=== PATIENT | male | born 1945 | race Caucasian/White ===

== ENCOUNTER → 2017-01-07 | Outpatient (CLI) | payer MEDICARE ==
[~2017-01-07] MED LIST: ASPIRIN81 M2 PO; ATORVASTATIN CA10 MG PO; HYDROCHLOROTHIA25 MG PO; LOTENSIN40 MG PO; MULTI-VITAMIN1 EAC1 PO; NITROGLYGERIN0.4 MG SL
--- NOTE | ~2017-01-07 | US85 ---
[facility] A Service of [facility] RADIOLOGY TEXT RESULTS PATIENT: CONRAD AUGUST JR LOCATION: CNIV : 43 UNIT #: [id number] AGE: [address]: Kedar Villaseñor MD SEX: M ORDER DR: [id number] [facility] [address] [place], [place] [address] [id number] O MR#: [id number] Acc #: [id number] NAME: CONRAD AUGUST : 1945 SEX: M STUDY DATE/TIME: 01/07/2017 15:18 UNIT: CNIV ROOM: STUDY DESCRIPTION: [facility] Attending Physician: Kedar Villaseñor M.D. Referring Physician: Kedar Villaseñor M.D. Ordering Physician: Kedar Villaseñor M.D. Primary Care Physician: Jose Mcnair M.D. MEDICAL IMAGING REPORT This report is preliminary unless electronic signature is present EXAM Unilateral left lower extremity venous Doppler, 01/07/2017. HISTORY Left leg pain for several weeks. PROCEDURE Vázquez-scale imaging, color Doppler flow imaging and Doppler waveform analysis. FINDINGS There is a left popliteal fossa, Balbuena cyst about 1 x 1.5 x 2.5 cm in size. The exam is, otherwise, normal. There is normal color flow, and compressibility and where appropriate respiratory phasicity and/or augmentation throughout the entire left lower extremity deep venous system. IMPRESSION Incidental Balbuena's cyst, otherwise, normal/negative unilateral left lower extremity venous Doppler. No evidence of DVT. Dictated by... Cesario Carr M.D. THIS IS AN ELECTRONICALLY VERIFIED REPORT Cesario Carr M.D. at 01/12/2017 12:16 PM TEV/jmai [facility] A Service [facility] RADIOLOGY TEXT RESULTS PATIENT: CONRAD AUGUST JR LOCATION: CNIV : 43 UNIT #: [id number] AGE: [address]: Kedar Villaseñor MD SEX: M ORDER DR: TD: 01/07/2017 17:44 JOB #: [id number] MEDICAL IMAGING REPORT Page 1 of 1 COPY
== END | disposition home or self-care (01) ==
LOC: CNIV 15:00
DX: M79.662 Pain in left lower leg (principal); M79.89 Other specified soft tissue disorders
CPT/HCPCS: 93971

== ENCOUNTER 2017-04-20 10:30 | Observation (INO) | payer MEDICARE ==
[~2017-04-20] VITALS: Ht 172.7 cm; Wt 82.8 kg
--- NOTE | ~2017-04-20 | EKG ---
PATIENT: CONRAD AUGUST UNIT #: [id number] Ventricular Rate: 61 BPM Atrial Rate: 61 BPM P-R Interval: 214 ms QRS Duration: 100 ms Q-T Interval: 404 ms QTC Calculation(Bezet): 406 ms P Josephine: 37 degrees Calculated R Josephine: -25 degrees Calculated T Josephine: 45 degrees Diagnosis Line: Sinus rhythm with 1st degree A-V block Diagnosis Line: Possible Left atrial enlargement Diagnosis Line: Left ventricular hypertrophy Diagnosis Line: Abnormal ECG Diagnosis Line: Diagnosis Line: Confirmed by MELANIA GUILLORY MD ([id number]) on Diagnosis Line: 04/23/2017 10:46:44 AM INTERPRETING MD: PASTORA ESCOBAR
--- NOTE | ~2017-04-20 | HP ---
Unit #: [id number] #: [id number] Patient: CONRAD AUGUST JR [id number] [address] [place], [place] [address] [id number] I MR#: [id number] NAME: OCNRAD AUGUST JR ROOM: 89758 Age: 72 Sex: M Admission Date: 04/20/2017 : 1945 Attending Physician: Rob Flores M.D. Primary Care Physician: Jose Mcnair M.D. HISTORY AND PHYSICAL REASON FOR ADMISSION Chest pain. HISTORY OF PRESENT ILLNESS The patient is a 72-year-old male who has seen Dr. Marte in the past. He had a cardiac cath in 2008 that was essentially unremarkable. It was noted in the impression that there was some question of systolic kink in the distal LAD and he was to have an outpatient Cardiolite stress test which patient did not have. Patient did have a treadmill stress test in 2012 that was unremarkable. PAST MEDICAL HISTORY He has a history of hypertension, hyperlipidemia. He has a history of tobacco use over 40 years ago, history of factor V, he does not take Coumadin, states he has tested positive and had a DVT postoperatively in the past after a hip arthroplasty. SOCIAL HISTORY Patient is an ex-smoker of over 40 years. No alcohol or drug abuse. FAMILY HISTORY Significant for factor V but no significant history of coronary artery disease. He did have a relative that was his aunt that suddenly in her sleep from what they suspect was a stroke. DIAGNOSTICS CARDIOVASCULAR: EKG showed sinus rhythm, LVH. LABORATORY: White blood cell count 6.7, hemoglobin 14.9, hematocrit 47.2, platelet count 148, sodium 141, potassium 3.8, chloride 101, CO2 32, BUN 13, creatinine 1.2, troponin negative x2. REVIEW OF SYSTEMS Complains of left-sided intermittent dull pain. No fever, chills, cough, nausea, vomiting, diarrhea, dizziness, lightheadedness, headache, change in visual field. All other review of systems is negative. PHYSICAL EXAMINATION GENERAL: Patient is awake and alert, in no apparent distress. Color is pink. Skin is warm and dry. VITAL SIGNS: Afebrile, heart rate 63, blood pressure 137/79. HEENT: Normal carotid upstrokes. No auscultated bruit. Negative JVD lying supine. Negative hepatojugular reflux. CHEST: Respirations are regular, unlabored at rest. Bilateral breath Unit #: [id number] #: [id number] Patient: MARIANGEL SANTOS,CONRAD sounds have good air entry through all lung enriquez. No crackles, rubs or wheezes are heard. HEART: S1, S2. Regular rate and rhythm. No murmurs, rubs or gallops. ABDOMEN: Abdomen is soft, nontender and nondistended. Positive bowel sounds all four quadrants. No ascites noted. EXTREMITIES: Bilateral lower extremities have no pretibial pitting edema. DP/PT pulses are 2+. Cap refill less than three seconds. NEURO: No focal motor or sensory deficits. IMPRESSION 1. Musculoskeletal pain. 2. History of factor V Leiden deficiency. 3. Hypertension. 4. Hyperlipidemia. 5. History of cardiac catheterization in 2008. PLAN Will rule out for AK, check 2D echo with Doppler to assess LV function. If cardiac enzymes are negative will plan on Lexiscan stress test tomorrow a.m. Further recommendations pending hospital course. Dictated by Elysia Pagan APRN for Artur Zavaleta/ursula TD: 04/20/2017 19:20 JOB #: [id number] HISTORY AND PHYSICAL Page 1 of 1 X X HISTORY AND PHYSICAL
--- NOTE | ~2017-04-20 | TH ---
Unit #: [id number] #: [id number] Patient: CONRAD AUGUST JR [id number] [address] [address] [id number] I MR#: [id number] NAME: CONRAD AUGUST JR : 1945 SEX: M STUDY DATE/TIME: 04/21/2017 UNIT: [facility] ROOM: 579 STUDY DESCRIPTION: Attending Physician: Rbo Flores M.D. Primary Care Physician: Jose Mcnair M.D. CARDIOLOGY REPORT EXAM Lexiscan Cardiolite stress test, nuclear portion. PROCEDURE Using technetium 99m labeled Cardiolite, rest and stress SPECT images were obtained. Multiple SPECT images were obtained in various views including horizontal and vertical long axis and short axis views of the left ventricle. Images were obtained by gated SPECT method. The patient was administered 11.17 mCi of Cardiolite at rest. The patient was administered 33.3 mCi of Cardiolite after Lexiscan infusion was completed. On the stress images, there is normal perfusion noted. The rest images showed normal perfusion. Comparing rest and stress images, there is no stress-induced ischemia noted. The left ventricular ejection fraction is calculated to be 53%. There is no focal wall motion abnormality seen. CONCLUSION 1. No stress-induced ischemia noted. 2. The left ventricular ejection fraction is calculated to be 53%. 3. There is no focal wall motion abnormality seen. 4. Normal Lexiscan Cardiolite stress test. Dictated by... Artur Chinchilla TD: 04/21/2017 14:43 JOB #: [id number] CARDIOLOGY REPORT Page 1 of 1 X Nemo Zamarripa MD <ELECTRONICALLY SIGNED> 05/06/17 1524 CARDIOLOGY REPORT
--- NOTE | ~2017-04-20 | HP ---
Unit #: [id number] #: [id number] Patient: CONRAD AUGUST JR [id number] [address] [place], [place] [address] [id number] I MR#: [id number] NAME: CONRAD AUGUST JR ROOM: 579 Age: 72 Sex: M Admission Date: 04/20/2017 : 1945 Attending Physician: Rob Flores M.D. Primary Care Physician: Jose Mcnair M.D. HISTORY AND PHYSICAL ADDENDUM Patient was originally admitted for chest pain. He underwent walking Lexiscan Cardiolite which was negative for any stress-induced ischemia. A 2D echocardiogram showed a normal ejection fraction. The patient was deemed stable for discharge home today after he was evaluated and seen by Dr. Flores. There were no changes to his medication regimen during the hospitalization. The patient will be sent out with sublingual nitroglycerin 0.4 mg p.r.n. chest pain with instructions on use. During his hospitalization, there were no arrhythmias. Cardiac rhythm remained stable. Blood pressure was stable and cardiac enzymes remained negative throughout his hospital stay. A long discussion was had with the patient and the family. He was advised if he continued to have persistent chest pain left heart cardiac catheterization would be performed with a FFR measurement. The patient was advised to follow up with his primary care physician in one week and he will follow up with Dr. Flores as he would prefer to change cardiologists from Dr. Marte to Dr. Flores. His appointment is scheduled for June 04 at 2:30 p.m. Discharge condition is stable. Dictated by Chung uBtt/oralia TD: 04/22/2017 09:30 JOB #: [id number] HISTORY AND PHYSICAL Page 1 of 1 X Alexandria Nguyen APRN X HISTORY AND PHYSICAL
--- NOTE | ~2017-04-20 | CR72 ---
[facility] A Service of [facility] RADIOLOGY TEXT RESULTS PATIENT: CONRAD AUGUST JR LOCATION: CEDOF [id number] : 43 UNIT #: [id number] AGE: [address]: Rob Flores MD SEX: M ORDER DR: [id number] [facility] [address] [place], [place] [address] [id number] I MR#: [id number] Acc #: [id number] NAME: CONRAD AUGUST JR : 1945 SEX: M STUDY DATE/TIME: 04/20/2017 11:16 UNIT: CEDOF ROOM: 78059 STUDY DESCRIPTION: CR Chest Single View Portable Attending Physician: Rob Flores M.D. Ordering Physician: Clarisse Cervantes M.D. Primary Care Physician: Jose Mcnair M.D. MEDICAL IMAGING REPORT This report is preliminary unless electronic signature is present EXAM Chest portable 04/20/2017 1116 hours HISTORY 72-year-old man with chest pain and shortness of air for 2.5 weeks. History of hypertension and prostate cancer. COMPARISON None. FINDINGS Single portable upright chest demonstrates heart size at the upper limits of normal. The aorta is mildly tortuous. There is mild pulmonary venous distension without edema, pneumonia or effusion. IMPRESSION Heart size at the upper limits of normal. The lungs are clear and there are no effusions. Dictated by... Marissa Cooley M.D. THIS IS AN ELECTRONICALLY VERIFIED REPORT Marissa Cooley M.D. at 04/20/2017 7:04 PM IAN/phoebe TD: 04/20/2017 16:07 JOB #: [id number] MEDICAL IMAGING REPORT Page 1 of 1 COPY
--- NOTE | ~2017-04-20 | ST ---
Unit #: [id number] #: [id number] Patient: CONRAD AUGUST JR [id number] [facility]. [address] [address] [id number] I MR#: [id number] NAME: CONRAD AUGUST JR : 1945 SEX: M STUDY DATE/TIME: 04/20/2017 UNIT: [facility] ROOM: 579 STUDY DESCRIPTION: Attending Physician: Rob Flores M.D. Primary Care Physician: Jose Mcnair M.D. CARDIOLOGY REPORT EXAM Walking Lexiscan Cardiolite. REASON FOR EXAM Chest pain. FINDINGS Baseline EKG: Normal sinus rhythm, rate of 70 beats per minute, nonspecific T-wave abnormality is noted. PROCEDURE 0.4 mg of Lexiscan was injected per protocol followed by Cardiolite. Next, during the infusion the patient complained of mild shortness of breath but denied any complaints of chest pain or dizziness. His shortness of breath resolved in the recovery period. Next, there were no ST or T wave changes noted suggestive of ischemia. Next, there was no ectopy. Next, the test was stopped secondary to protocol completion. IMPRESSION 1. Negative EKG portion of walking Lexiscan Cardiolite. 2. No ST-T wave changes suggestive of ischemia. 3. Patient complained of mild shortness of breath during the infusion but denied any complaints of chest pain. His shortness of air resolved in the recovery period. 4. There were no arrhythmias. 5. Please correlate with nuclear images. Dictated by... Gerri ButtPConnieRConnieNConnie for Artur Chinchilla/oralia TD: 04/21/2017 12:52 JOB #: [id number] Unit #: [id number] #: [id number] Patient: CONRAD AUGUST JR CARDIOLOGY REPORT Page 1 of 1 X Alexandria Nguyen APRN CARDIOLOGY REPORT
[~2017-04-20 10:30] MED LIST changes: -ATORVASTATIN CA10 MG PO; -NITROGLYGERIN0.4 MG SL
[2017-04-20 11:32] LABS: BASOPHIL% 0.5 % (0-2.5); EOSINOPHIL# 0.1 X10e3 (0-0.7); HEMATOCRIT 47.2 % (38.0-50.0); HEMOGLOBIN 15.9 gm/dL (13.0-16.0); LYMPHOCYTE# 0.9 X10e3 (1.0-3.5); LYMPHOCYTE% 13.9 % (17.0-45.0); MEAN CELL VOLUME 89.8 FL (83-96); MEAN CORPUSCULAR HEMOGLOBIN 30.1 PG (28-34); MEAN CORPUSCULAR HGB CONC 33.6 g/dL (30-36); MEAN PLATELET VOLUME 9.7 FL (6.5-11.5); MONOCYTE# 0.6 X10e3 (0-1.0); MONOCYTE% 8.2 % (3.0-12.0); NEUTROPHIL# 5.1 X10e3 (1.5-7.1); NEUTROPHIL% 76.4 % (40-75); PLATELET COUNT 148 X10e3 (140-420); RED BLOOD COUNT 5.26 X10e (3.90-5.60); RED CELL DISTRIBUTION WIDTH 13.5 % (11.0-15.5); WHITE BLOOD COUNT 6.7 X10e3 (4.0-10.5)
[2017-04-20 11:33] LABS: DIFF IND NO
[2017-04-20 11:33] LABS: POC - CKMB 3.8 ng/mL (0.0-7.9); POC - TROPONIN <0.05 ng/mL (<=0.05)
[2017-04-20 12:11] LABS: PARTIAL THROMBOPLASTIN TIME 24.5 SECONDS (23.5-31.3); PROTHROMBIN TIME (PATIENT) 10.7 SECONDS (10.0-11.7)
[2017-04-20 12:17] LABS: ALBUMIN SERUM 4.4 g/dL (3.5-5.0); BILIRUBIN, DIRECT 0.1 mg/dL (0.0-0.2); BILIRUBIN,INDIRECT 0.6 mg/dL (0.0-0.9); BILIRUBIN,TOTAL 0.7 mg/dL (0.2-2.0); BUN/CREATININE RATIO 10.83; CALCIUM SERUM 9.6 mg/dL (8.4-10.2); CREATININE SERUM 1.2 mg/dL (0.6-1.4); GLOM FILT RATE Estimated 59.2 mL/min (>60); POTASSIUM 3.8 mmol/L (3.5-5.1); PROTEIN TOTAL SERUM 7.4 g/dL (6.0-8.3)
[2017-04-20 13:02] LABS: POC - TROPONIN <0.05 ng/mL (<=0.05)
[2017-04-20] MEDS ORDERED: ATORVASTATIN CA10 MG PO (14:25)
[2017-04-20 20:10] LABS: %MB 4.3 % (0.0-4.0); MB 3.8 ng/ml
[2017-04-21 01:50] LABS: %MB 3.7 % (0.0-4.0); MB 3.2 ng/ml
[2017-04-21] MEDS ORDERED: NITROGLYGERIN0.4 MG SL (16:23)
== END 2017-04-21 18:08 | disposition home or self-care (01) ==
LOC: CED 10:30 → CEDOF 14:10 → CED 15:35 → CEDOF 15:35 → C5C 20:21 → CEDOF 20:21 → C5C 04-21 18:08
PROVIDERS: Emergency Medicine; Internal Medicine Cardiovascular Disease
DX: R07.89 Other chest pain (principal); I10 Essential (primary) hypertension; E78.5 Hyperlipidemia, unspecified; Z87.891 Personal history of nicotine dependence; Z86.718 Personal history of other venous thrombosis and embolism; Z82.49 Family history of ischemic heart disease and other diseases of the circulatory system
CPT/HCPCS: 36415; 71010; 78452; 80048; 80076; 82550; 82553; 84484; 85025; 85610; 85730; 93005; 93017; 93306; 96372; 99285; A9500; G0378; J1650; J2785

== ENCOUNTER → 2017-05-05 | Outpatient (CLI) | payer MEDICARE ==
[~2017-05-05] MED LIST changes: +ATORVASTATIN CA10 MG PO; +NITROGLYGERIN0.4 MG SL
--- NOTE | ~2017-05-05 | CT15 ---
[facility] A Service of [facility] & [facility] RADIOLOGY TEXT RESULTS PATIENT: CONRAD AUGUST JR LOCATION: CCAT : 43 UNIT #: [id number] AGE: [address]: Jose Mcnair MD SEX: M ORDER DR: [id number] [facility] [address] [place], [place] [address] [id number] O MR#: [id number] [facility] #: [id number] NAME: CONRAD AUGUST : 1945 SEX: M STUDY DATE/TIME: 05/05/2017 15:20 UNIT: [facility] ROOM: STUDY DESCRIPTION: CT Angio Chest Attending Physician: Jose Mcnair M.D. Referring Physician: Jose Mcnair M.D. Ordering Physician: Jose Mcnair M.D. Primary Care Physician: Jose Mcnair M.D. MEDICAL IMAGING REPORT This report is preliminary unless electronic signature is present EXAM CT angiography of the chest with IV contrast, 05/05/2017 HISTORY 72-year-old male with atypical chest pain on the left side for 1 month. History of prostate cancer diagnosed 4 years ago. Hypertension. Back surgery. COMPARISON AP portable chest 04/20/2017. No prior CT chest at this institution for comparison. PROCEDURE 2 mm axial images from the thoracic inlet through the upper abdomen after intravenous contrast administration. 3-D reformatted images were obtained at a dedicated workstation. This CT exam was performed with one or more of the following radiation dose reduction techniques: automatic exposure control, adjustment of mA and/or kV according to patient size, and iterative reconstruction. FINDINGS No pulmonary embolism is seen. The aortic root at the sinus of Valsalva is ectatic at 3.9 cm. The annulus measures 3.1 cm. Sinotubular junction measures 3.1 cm. The mid ascending thoracic aorta is ectatic at 3.8 cm but is not frankly aneurysmal. The mid descending thoracic aorta is mildly aneurysmal at 3.1 cm. The aorta at the diaphragmatic hiatus is of normal caliber measuring 2.7 cm. Only mild calcific atherosclerosis is seen within the transverse and descending thoracic aorta. No dissection. Conventional branching pattern of the great arteries from the aortic arch. [facility] A Service of [facility] & [facility] RADIOLOGY TEXT RESULTS PATIENT: CONRAD AUGUST JR [facility] UN[facility] #: [id number] AGE: [address]: Jose Mcnair MD SEX: M ORDER DR: There is very mild calcific atherosclerosis of the origin of the great arteries. The celiac artery and SMA are patent. Dense left anterior descending coronary calcification is present. Heart size within normal limits. No pericardial effusion or pleural effusion. No pathologic adenopathy. Thyroid gland within normal limits. The lungs are clear. Included upper abdominal organs are within normal limits. No acute osseous abnormalities. IMPRESSION 1. Dense calcification is present within the left anterior descending coronary artery. Correlate with cardiac history. 2. 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 3. 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 4. 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 5. No aortic dissection 6. No pulmonary embolism. 7. Clear lungs. Dictated by... Elysia Duong M.D. THIS IS AN ELECTRONICALLY VERIFIED REPORT Elysia Duong M.D. at 05/06/2017 3:59 PM Leon TD: 05/06/2017 10:20 JOB #: [id number] MEDICAL IMAGING REPORT Page 1 of 1 COPY
== END | disposition home or self-care (01) ==
LOC: CCAT 14:31
DX: R07.89 Other chest pain (principal); I25.10 Atherosclerotic heart disease of native coronary artery without angina pectoris; I71.2 Thoracic aortic aneurysm, without rupture
CPT/HCPCS: 71275; Q9967